=== PATIENT | female | born 1970 | race Caucasian/White ===

== ENCOUNTER 2024-09-08 05:44 | Emergency (ER) | payer OTHER, SELFPAY ==
--- NOTE | ~2024-09-08 | XR_ITS ---
XR chest 2V 09/08/2024 06:36 Indication: Chest palpitations Procedure: 2 view chest Comparison: 12/20/2023 Findings: Heart size normal. No focal air space disease, pulmonary edema, pleural effusion or suspect ed pneumothorax. Impression: 1: No acute cardiopulmonary disease. Reviewed, dictated and finalized at location A. Impression: 1: No acute cardiopulmonary disease.
--- OUTSIDE RECORDS SUMMARY | 2024-09-08 05:48 | XMS_ITS | Encounter Summary ---
Author Organization [facility] Address [address] [place] [address] Phone Care Team Providers Care Fire Alarm Operator Name Role Phone Marcela Mitchell MD Primary Care Provider [phone] Blake Browning MD Unavailable [phone] Burt Botello MD Unavailable [phone] Reason for Visit * Reason Comments Medication Refill Encounter Details Date Type Department Care Team (Late st Contact Info) Description 05/05/2020 Refill [facility] [address] [place] [address] Burt Botello MD [address] [place] [phone] Medication Refill Social History Tobacco Use Types Packs/Day Years Used Date Smoking Tobacco: Never Smokeless Tobacco: Never PHQ-2 Answer Date Recorded Total Score - Questions 1-9 1 04/21 Comments Unknown Sex and Gender Information Value Date Recorded Sex Assigned at Not on file Legal Sex Female 8:45 AM MICRO COMPUTER SPECIALIST Gender Identity Not on file Sexual Orientation Not on file COVID-19 Exposure Response Date Recorded In the last month, have you been in contact with someone who was confirmed or suspected to have Coronavirus / COVID-19? No / Unsure 05/08/2020 11:46 AM CDT documented as of this encounter Plan of Treatment Not on file documented as of this encounter Visit Diagnoses Not on filedocumented in this encounter Additional Health Concerns Assessment Noted Time PHQ-9 Depression Total Score: 1 04/26/19 20 2:42 PM MICRO COMPUTER SPECIALIST documented as of this encounter Care Teams Fire Alarm Operator Relationship Specialty [place] [address] [place] [address] PCP - General Internal Medicine 03/08/19 [place] [address] [place] [address] Colon & Rectal Surgery 03/08/19 Burt Botello MD [address] [place] [phone] Consulting Physician Oncology 04/21/20 documented as of this encounter
--- OUTSIDE RECORDS SUMMARY | 2024-09-08 05:48 | XMS_ITS | Encounter Summary ---
Author Organization [facility] Address [address] [place] [address] Care Team Providers Care Support Team Member Name Role Phone Marcela Mitchell MD Primary Care Provider [phone] None, Provider Primary Care Provider Karyna Isabel NP Primary Care Provider + [phone] Encounter Details Date Type Department Care Team (Late st Contact Info) Description 12/07/2019 [email or web address] Message Enc [facility] Family & Internal Medicine [address] [address] [facility] Results Social History Tobacco Use Types Packs/Day Years Used Date Smoking Tobacco: Never Smokeless Tobacco: Never Alcohol Use Standard Drinks/Week Comments Yes 0 (1 standard drink = 0.6 oz pur e alcohol) Very occasionally PHQ-2 Answer Date Recorded PHQ-2 Score 4 01/16/2019 Comments No Sex and Gender Information Value Date Recorded Sex Assigned at Female 05/03/2024 1:21 AM CDT Legal Sex Female 7:00 PM CDT Gender Identity Female 05/18/2021 6:23 AM CDT Sexual Orientation Straight 05/18/2021 6: 23 AM CDT COVID-19 Exposure Response Date Recorded In the last month, have you been in contact with someone who was confirmed or suspected to have Coronavirus / COVID-19? No / Unsure 12/07/2019 12:58 PM CDT documented as of this encounter Plan of Treatment Not on file documented as of this encounter Visit Diagnoses Not on filedocumented in this encounter Additional Health Concerns Infection Onset Date Last Indicated Resolved Time COVID-19 Rule Out 11/13/2020 11/13/2020 11/13/2020 3:12 PM CDT COVID-19 Rule Out 11/20/2020 11/20/2020 11/20/2020 2:55 PM CDT COVID-19 Rule Out 11/26/2020 11/26/2020 11/26/2020 3:00 PM CDT COVID-19 Rule Out 12/02/2020 12/02/2020 12/02/2020 3:04 PM CDT COVID-19 Rule Out 12/10/2020 12/10/2020 12/10/2020 2:59 PM CDT COVID-19 Rule Out 12/17/2020 12/17/2020 12/17/2020 3:13 PM CDT COVID-19 Rule Out 12/22/2020 12/22/2020 12/22/2020 4:02 PM CDT COVID-19 Rule Out 12/31/2020 12/31/2020 12/31/2020 3:08 PM OIL DISPATCHER COVID-19 Rule Out 01/07/2021 01/07/2021 01/07/2021 2:17 PM OIL DISPATCHER COVID-19 Rule Out 01/14/2021 01/14/2021 01/14/2021 3:00 PM OIL DISPATCHER COVID-19 Rule Out 01/21/2021 01/21/2021 01/21/2021 2:56 PM OIL DISPATCHER COVID-19 Rule Out 01/28/2021 01/28/2021 01/28/2021 2:51 PM OIL DISPATCHER COVID-19 Rule Out 02/04/2021 02/04/2021 02/04/2021 2:51 PM OIL DISPATCHER COVID-19 Rule Out 02/10/2021 02/10/2021 02/10/2021 3:04 PM OIL DISPATCHER COVID-19 Rule Out 02/18/2021 02/18/2021 02/18/2021 2:53 PM OIL DISPATCHER COVID-19 Rule Out 02/25/2021 02/25/2021 02/25/2021 5:03 PM OIL DISPATCHER COVID-19 Rule Out 03/04/2021 03/04/2021 03/04/2021 3:03 PM OIL DISPATCHER Assessment Noted Time PHQ-9 Depression Total Score: 15 019 11:32 AM CDT documented as of this encounter Care Teams Support Team Member Relationship Specialty Start Date End Date Marcela Mitchell MD PCP - General INTERNAL MEDICINE 07/20/18 01/17/23 None, Provider, PCP - General UNKNOWN PHYSICIAN SPECIALTY 01/18/23 [place] [address] [place] [address] PCP - General Nurse Practitioner Family 05/16/23 documented as of this encounter
--- OUTSIDE RECORDS SUMMARY | 2024-09-08 05:48 | XMS_ITS | Encounter Summary ---
Author Organization [facility] Address [address] [place] [address] Phone Care Team Providers Care Associate Software Application Engineer Name Role Phone Marcela Mitchell MD Primary Care Provider [phone] Blake Browning MD Unavailable [phone] Burt Botello MD Unavailable [phone] Reason for Visit * Reason Comments Medication Refill Encounter Details Date Type Department Care Team (Late st Contact Info) Description 01/18/2021 Refill [facility] [address] [place] [address] Burt Botello MD [address] [place] [phone] Medication Refill Social History Tobacco Use Types Packs/Day Years Used Date Smoking Tobacco: Never Smokeless Tobacco: Never PHQ-2 Answer Date Recorded Total Score - Questions 1-9 1 04/21 Comments No Sex and Gender Information Value Date Recorded Sex Assigned at Not on file Legal Sex Female 8:45 AM CONSUMER LOAN MANAGER Gender Identity Not on file Sexual Orientation Not on file documented as of this encounter Miscellaneous Notes * Telephone Encounter - Burt Botello MD - 01/19/2021 2:24 PM CONSUMER LOAN MANAGER Needs appt UMER LOAN MANAGER * Telephone Encounter - Marialuisa Jeff RMA - 01/19/2021 9:21 AM CST Pharmacy requested refill. Please refill if appropriate. Thanks! UMER LOAN MANAGER documented in this encounter Plan of Treatment Not on file documented as of this encounter Visit Diagnoses Not on filedocumented in this encounter Additional Health Concerns Assessment Noted Time PHQ-9 Depression Total Score: 1 05/09/19 21 12:00 PM CDT documented as of this encounter Care Teams Associate Software Application Engineer Relationship Specialty [place] [address] [place], [place] [id number] PCP - General Internal Medicine 03/08/19 [place] [address] [place] [address] Colon & Rectal Surgery 03/08/19 Burt Botello MD [address] [place] [address] Consulting Physician Oncology 04/21/20 documented as of this encounter
--- OUTSIDE RECORDS SUMMARY | 2024-09-08 05:48 | XMS_ITS | Encounter Summary ---
Author Organization [facility] Address [address] [place] [address] Phone Care Team Providers Care Packaging Engineer Name Role Phone Marcela Mitchell MD Primary Care Provider Blake Browning MD Unavailable [phone] Burt Botello MD Unavailable [phone] Reason for Visit * Reason Comments Medication Refill Encounter Details Date Type Department Care Team (Late st Contact Info) Description 02/03/2021 Refill [facility] [address] [address] Burt Botello MD [address] [place] [phone] Medication Refill Social History Tobacco Use Types Packs/Day Years Used Date Smoking Tobacco: Never Smokeless Tobacco: Never PHQ-2 Answer Date Recorded Total Score - Questions 1-9 1 04/21 Comments No Sex and Gender Information Value Date Recorded Sex Assigned at Not on file Legal Sex Female 8:45 AM CHIROPRACTIC ASSISTANT Gender Identity Not on file Sexual Orientation Not on file documented as of this encounter Plan of Treatment Not on file documented as of this encounter Visit Diagnoses Not on filedocumented in this encounter Additional Health Concerns Assessment Noted Time PHQ-9 Depression Total Score: 1 05/09/19 21 12:00 PM CDT documented as of this encounter Care Teams Packaging Engineer Relationship Specialty [place] [address] [place] [address] PCP - General Internal Medicine 03/08/19 [place] [address] [place] [address] Colon & Rectal Surgery 03/08/19 Burt Botello MD [address] [place] [phone] Consulting Physician Oncology 04/21/20 documented as of this encounter
--- OUTSIDE RECORDS SUMMARY | 2024-09-08 05:48 | XMS_ITS | Clinical Summary ---
Author Organization [facility] Address [address] [place] [address] Care Team Providers Care Property Field Adjuster Name Role Phone Karyna Gallardo NP Primary Care Provider Allergies No known active allergies Medications multi vitamin/minerals tablet Take 1 tablet by mouth daily. Active Cholecalciferol (VITAMIN D3) Powder Take by mouth. Active Vitamin E Powder Take by mouth. 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 Abnormal mammogram of right breast 12/29/2018 Family history of breast cancer in mother 2018 Irregular periods 08/04/2015 Low grade squamous intraepit helial lesion (LGSIL) on cervical Pap smear 07/31/2015 Hematuria 07/17/2015 Hyperlipidemia 10/04/2014 Encounters Date Type Department Care Team Description 06/28/2024 1:56 PM CDT - 06/28/2024 11:59 PM CDT Hospital Encounter [facility] Mammography [address] [place] [address] Reid Molina, WELT BUTTER HAND Discharge Disposition: Home or Self Care (Routine Discharge) 06/28/2024 Travel from Last 3 Months Immunizations Immunization Administration Dates Next Due Fluzone Adult - >Age 3 (Prefilled Syringe) 12/05 Td (Tenivac) preservative free 1972 Tdap (Generic) 07/24/2015 Family History Medical History Relation Comments CHF Father COPD Father Emphysema Father Hypertension Father Breast Cancer Maternal Grandmother UNSURE OF A GE Breast Cancer Mother LATE 50'S Cancer Mother Breast Cancer Sister 1 Cancer Sister 2 Relation Status Comments Father Maternal Grandmother Mother Sister 1 Alive Sister 2 Social History Tobacco Use Types Packs/Day Years Used Date Smoking Tobacco: Never Smokeless Tobacco: Never Tobacco Cessation:Counseling Given: Not Answered Alcohol Use Standard Drinks/Week Comments Not Currently 0 (1 standard drink = 0.6 oz pur e alcohol) Very occasionally PHQ-2 Answer Date Recorded Patient Health Questionnaire-2 Score 1 05/22/2024 Comments No Sex and Gender Information Value Date Recorded Sex Assigned at Female 05/03/2024 1:21 AM CDT Legal Sex Female 7:00 PM CDT Gender Identity Female 05/18/2021 6:23 AM CDT Sexual Orientation Straight 05/18/2021 6: 23 AM CDT Last Filed Vital Signs Vital Sign Reading Time Taken Comments Blood Pressure 136/87 05/22/2024 2:29 PM CDT Pulse 83 05/22/2024 2:29 PM CDT Temperature 36.8 C (98.2 F) 05/22/2024 2:29 PM CDT Respiratory Rate 18 05/22/2024 2:29 PM CDT Oxygen Saturation 100% 05/22/2024 2:29 PM CDT Inhaled Oxygen Concentration - - Weight 72.6 kg (160 lb) 05/22/2024 2:29 PM CDT Height 167.6 cm (5' 6) 05/22/2024 2:29 PM CDT Body Mass Index 25.82 05/22/2024 2:29 PM CDT Plan of Treatment Health Maintenance Due Date Last Done Comments Colorectal Cancer Screening Colonoscopy (10 Years) 1972 Annual Physical 12/19/1975 Hepatitis C 1990 Hepatitis B Vaccines (1 of 3 - 19+ 3-dose series) 12/19/1991 Pneumococcal Vaccine: 50+ Years (1 of 1 - PCV) 2022 Zoster Vaccines (1 of 2) 2022 COVID-19 Vaccine ( - 2023- season) 2023 Cervical Cancer Screening Pap Smear (Age 30 to 64) Every 3 Years 08/21/2024 08/21/2021, 06/26/2021, 07/24/2015 DTaP, Tdap and Td Vaccines (2 - Td or Tdap) 07/23/2025 07/24/2015, 1970 Mammogram Screening 06/28/2026 06/28/2024, 06/13/2023, 01/12/2022, Additional history exists Cervical Cancer Screening Pap with HPV Testing (Age 30 to 64) Every 5 Years 08/21/2026 08/21/2021, 06/26/2021, 07/24/2015 Cervical Cancer Screening with HPV 08/21/2026 PHQ-2 (Physician [place]) Completed 05/22/2024 Meningococcal B Vaccine Aged Out No l onger eligible based on patient's age to complete this topic Meningococcal Vaccine Aged Out No radha uriel eligible based on patient's age to complete this topic RSV Immunizations Under 20 Months Aged Out No longer eligible based on patient's age to complete this topic Procedures Procedure Name Priority Date/Time Associated Diagnosis Comments MG SCREENING W MARIBEL KANDI DIGI Routine 06/28/2024 2:36 PM CDT Encounter for screening mammogram for malignant neoplasm of breast HPV MRNA E6/E7 Routine 08/21/2021 2:55 PM CDT CYTOPATH CERV/VAG THIN LAYER Routine 08/21/2021 12:00 AM CDT from Last 3 Months or Most Recently Relevant to Health Maintenance Results * MG SCREENING W MARIBEL KANDI DIGI (06/28/2024 2:36 PM CDT) Anatomical Region Laterality Modality Breast Bilateral Mammography 06/28/2024 4:59 PM CDT Impressions 06/28/2024 5:03 PM CDT ===== IMPRESSION: ===== 1. Stable mammographic appearance with no new findings to suggest malignancy in either breast. Assessment: ACR BI-RADS 2 - BENIGN FINDING(S) Recommendation: 1:Routine Screening Bilateral Comments: Ordered By: REID Benoitally Signed By: Charlotte Cassidy on 06/28/2024 5:03 PM Interpreted By: Charlotte Cassidy, 06/28/2024 4:59 PM Narrative 06/28/2024 5:03 PM CDT [facility] [address] [place] [address] EXAMINATION: Digital bilateral screening mammogram with 3-D tomosynthesis EXAM DATE/TIME: 06/28/2024 2:03 PM REASON FOR EXAM: SCREENING MAMMO Right breast carcinoma in 2019 with lumpectomy. Breast carcinoma in mother in her late 50s and sister at age 62. COMPARISON: 01/12/2022. 06/13/2023. Technique: Digital screening mammography of both breasts was performed in addition to 3-D Tomosynthesis technique. This study was read with the assistance of a computer-aided detection system. Tissue density: The breasts are heterogeneously dense, which may obscure small masses. Findings: Stable postoperative change in right breast. There is no new focal asymmetry, dominant mass lesion, area of skin thickening, or cluster of suspicious appearing calcifications in either breast to suggest malignancy. us Reid Molina [employer] MAMMO Final Result * HPV MRNA E6/E7 (08/21/2021 2:55 PM CDT) HPV MRNA E6/E7 Not Detected NOT DETECTED 08/27/2021 6:16 AM CDT [employer]OR [facility]UARE[employer] Comment: Methodology: [employer] Judicial Law Clerk Mediated Amplification This assay detects E6/E7 viral messenger RNA (mRNA) from 14 high-risk HPV types (16,18,31,33,35,39,45,51, 52,56,58,59,66,68). For additional information please refer to: http://education.Federated Sample.[employer]/faq/CSF672p3 (This link is being provided for informational/ educational purposes only.) The analytical performance characteristics of this assay have been determined by [employer] [place], [place]. The modifications have not been cleared or approved by the FDA. This assay has been validated pursuant to the CLIA regulations and is used for clinical purposes. Test Performed by [facility] [facility], [address] [place], [place] Foreign Aj M.D., Ph.D., Director of Laboratories , CLIA [id number] 08/21/2021 2:55 PM CDT Reid Molina NP PATHOLOGY/CYTOLOGY ORDERABLES Final Result [facility] [address] [place] [address], * Cytopath Cerv/Vag Thin Layer (08/21/2021 12:00 AM CDT) COPATH REPORT [place] [address] [phone] Department of Pathology Pathology Report Gynecological Cytology Report Patient Name: YASMEEN ANDREW : 1970 (Age: 50) Location: [facility] Gender: F Collected Date: 08/21/2021 [facility] Rec #: [id number] Date Received: 08/24/2021 Date Reported: 08/27/2021 Provider: REID MALAGON Other Case Numbers [id number] Final Cytologic Diagnosis Satisfactory for evaluation. Endocervical component present. Negative for Intraepithelial Lesion or Malignancy. Cellular changes associated with Malia. High-risk HPV mRNA E6/E7 by [employer] assay (performed at [employer]) is reported as NOT DETECTED (see separate report for details). Electronically Signed Out By Van Jj Source of Specimen(s) Cervical/Endocervi francois - Thin Prep Clinical History Screening, last Pap 05/19/18 wnl. Z12.4 Date of Last Menstrual Period: 06/18/21 Billing Fee Code(s): A: 119[address] [facility] (B) [facility] 08/21/2021 08/24/2021 11: 16 AM CDT Comment:Cervical/Endocervica l - Thin Prep Reid Molina NP PATHOLOGY/CYTOLOGY ORDERABLES Final Result [facility] [address] [place] [address], from Last 3 Months or Most Recently Relevant to Health Maintenance Insurance [facility] Care Teams Property Field Adjuster Relationship Specialty [place] [address] [place] [address] PCP - General Nurse Practitioner Family 05/16/23
--- OUTSIDE RECORDS SUMMARY | 2024-09-08 05:48 | XMS_ITS | Clinical Summary ---
Author Organization [facility] Address [address], [facility] [address] [place] [address] Phone Care Team Providers Care Publication Manager Name Role Phone Marcela Mitchell MD Primary Care Provider [phone] Blake Browning MD Unavailable [phone] Burt Botello MD Unavailable [phone] Allergies No known active allergies Medications cyanocobalamin 1000 MCG Tablet Take 1,000 mcg by mouth. Active Multiple Vitamins-Minera ls (MULTI VITAMIN/MINERAL S) Tablet Take 1 Tab by mouth. Active tamoxifen citrate 20 MG Tablet Take 1 Tablet by mouth daily 90 Tablet 2 2 Active Additional Information Patient not taking.Reported on 02/04/2022 VITAMIN E PO Take by mouth. Ac tive VITAMIN D PO Take by mouth. 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 Immunizations Immunization Administration Dates Next Due Influenza Vaccine 12/05/2018 TDAP Vaccine 07/24/2015 Family History Medical History Relation Name Comments Congestive Heart Failure Father Cancer Mother Relation Name Status Comments Father COPD, Emphysema Mother breast cancer Social History Tobacco Use Types Packs/Day Years Used Date Smoking Tobacco: Never Smokeless Tobacco: Never Tobacco Cessation:Counseling Given: No PHQ-2 Answer Date Recorded Total Score - Questions 1-9 0 0 03/2021 Comments No Sex and Gender Information Value Date Recorded Sex Assigned at Not on file Legal Sex Female 8:45 AM WASHING MACHINE MECHANIC Gender Identity Not on file Sexual Orientation Not on file Last Filed Vital Signs Vital Sign Reading Time Taken Comments Blood Pressure 110/68 02/04/2022 1:40 PM WASHING MACHINE MECHANIC Pulse 98 02/04/2022 1:40 PM WASHING MACHINE MECHANIC Temperature 36.6 C (97.8 F) 02/04/2022 1:40 PM WASHING MACHINE MECHANIC Respiratory Rate 18 07/23/2021 1:00 PM CDT Oxygen Saturation 98% 02/04/2022 1:40 PM WASHING MACHINE MECHANIC Inhaled Oxygen Concentration - - Weight 68.9 kg (152 lb) 02/04/2022 1:40 PM WASHING MACHINE MECHANIC Height 167.6 cm (5' 6) 02/04/2022 1:40 PM WASHING MACHINE MECHANIC Body Mass Index 24.53 02/04/2022 1:40 PM WASHING MACHINE MECHANIC Plan of Treatment Health Maintenance Due Date Last Done Comments Hepatitis C Virus (HCV) Screening 1972 SARS-COV-2 Immunization (#1) 1977 Hepatitis B Immunization (1 of 3 - 19+ 3-dose series) 12/19/1991 Zoster Immunization (1 of 2) 12/19/1991 HPV/Cotest 2002 Cologuard 2017 Colonoscopy 2017 Colorectal Cancer Screening 2017 Immunochemical Fecal Occult Blood 2017 Pneumococcal Immunization (50+ years) (1 of 1 - PCV) 2022 Mammogram 01/12/2023 01/12/2022, 01/21, 01/09/2019, Additional history exists Cervical Cancer Screening (CCS) 06/26/2024 Pap Smear 06/26/2024 06/26/2021 Influenza Immunization (#1) 2024 12/05/2018 Td Immunization Every 10 Years (Adults With 1 Tdap) 07/23/2025 07/24/2015 Respiratory Syncytial Virus (RSV) Immunization (Adult) (1 - 1-dose 75+ series) 12/19/2047 DTaP/Tdap/Td Immunization Discontinued 07/24/2015 Human Papillomavirus (HPV) Immunization Aged Out No longer eligible based on patient's age to complete this topic Meningococcal Immunization (ACWY) Aged Out No longer eligible based on patient's age to complete this topic Rotavirus Immunization Aged Out No lo nger eligible based on patient's age to complete this topic Procedures Procedure Name Priority Date/Time Associated Diagnosis Comments PATHOLOGY CYTOLOGY METAL OR WOOD BLOCKER Routine 06/26/2021 from Last 3 Months or Most Recently Relevant to Health Maintenance Results * PATHOLOGY CYTOLOGY METAL OR WOOD BLOCKER (06/26/2021) Other us Not On File Provider PATHOLOGY/CYTOLOGY ORDERABL ES Final Result from Last 3 Months or Most Recently Relevant to Health Maintenance Insurance [facility] Care Teams Publication Manager Relationship Specialty [place] [address] [place] [address] PCP - General Internal Medicine 03/08/19 [place] [address] [place] [address] Colon & Rectal Surgery 03/08/19 Burt Botello MD [address] [place] [address] Consulting Physician Oncology 04/21/20
--- OUTSIDE RECORDS SUMMARY | 2024-09-08 05:48 | XMS_ITS | Encounter Summary ---
Author Organization [facility] Address [address] [place] [address] Care Team Providers Care Hadoop Engineer Name Role Phone Karyna Gallardo NP Primary Care Provider [phone] Encounter Details Date Type Department Care Team (Late st Contact Info) Description 05/16/2023 Pansieve Message Enc [facility] Family & Internal Medicine [address] [address] for; to (do) Centers, [facility] Provider reset appt Social History Tobacco Use Types Packs/Day Years [...] Orientation Straight 05/18/2021 6: 23 AM CDT documented as of this encounter Plan of Treatment Not on file documented as of this encounter Visit Diagnoses Not on filedocumented in this encounter Additional Health Concerns Assessment Noted Time PHQ-9 Depression Total Score: 15 019 11:32 AM CDT documented as of this encounter Care Teams Hadoop Engineer Relationship Specialty Start [place] [address] [facility] [address] [facility] [place] [address] PCP - General Nurse Practitioner Family 05/16/23 documented as of this encounter
--- OUTSIDE RECORDS SUMMARY | 2024-09-08 05:48 | XMS_ITS | Encounter Summary ---
Author Organization [facility] Address [address] [place] [id number] Care Team Providers Care Zipper Machine Operator Name Role Phone Marcela Mitchell MD Primary Care Provider + [phone] None, Provider Primary Care Provider Karyna Isabel NP Primary Care Provider + [phone] Encounter Details Date Type Department Care Team (Late st Contact Info) Description 05/21/2019 [facility] Patient Accounts [address] [place] [address] [facility] Provider account balance Social History Tobacco Use Types Packs/Day Years [...] Rule Out 12/31/2020 12/31/2020 12/31/2020 3:08 PM FAMILY SERVICE WORKER COVID-19 Rule Out 01/07/2021 01/07/2021 01/07/2021 2:17 PM FAMILY SERVICE WORKER COVID-19 Rule Out 01/14/2021 01/14/2021 01/14/2021 3:00 PM FAMILY SERVICE WORKER COVID-19 Rule Out 01/21/2021 01/21/2021 01/21/2021 2:56 PM FAMILY SERVICE WORKER COVID-19 Rule Out 01/28/2021 01/28/2021 01/28/2021 2:51 PM FAMILY SERVICE WORKER COVID-19 Rule Out 02/04/2021 02/04/2021 02/04/2021 2:51 PM FAMILY SERVICE WORKER COVID-19 Rule Out 02/10/2021 02/10/2021 02/10/2021 3:04 PM FAMILY SERVICE WORKER COVID-19 Rule Out 02/18/2021 02/18/2021 02/18/2021 2:53 PM FAMILY SERVICE WORKER COVID-19 Rule Out 02/25/2021 02/25/2021 02/25/2021 5:03 PM FAMILY SERVICE WORKER COVID-19 Rule Out 03/04/2021 03/04/2021 03/04/2021 3:03 PM FAMILY SERVICE WORKER Assessment Noted Time PHQ-9 Depression Total Score: 15 019 11:32 AM CDT documented as of this encounter Care Teams Zipper Machine Operator Relationship Specialty Start Date End Date Marcela Mitchell MD PCP - General INTERNAL MEDICINE 07/20/18 01/17/23 None, Provider, PCP - General UNKNOWN PHYSICIAN SPECIALTY 01/18/23 [place] [id number] [address] PCP - General Nurse Practitioner Family 05/16/23 documented as of this encounter
--- OUTSIDE RECORDS SUMMARY | 2024-09-08 05:48 | XMS_ITS | Data Portability ---
Author Organization [facility] Address [address] [place] [address] Assessment No assessment recorded. Plan of Treatment Reminders Order Date Submit Date Provider Last Modified By Organization Details Last Modified Time Details Appointments None recorded. Lab urinalysi s, dipstick 2015 016 garry In-Office Order, Internal Use Only DO Not Attach Compendium DO Not Attach Compendium, Do Not Delete/merge, [id number] 6 18:25:43 test, urine 2015 016 garry In-Office Order, Internal Use Only DO Not Attach Compendium DO Not Attach Compendium, Do Not Delete/merge, [id number] 6 18:25:43 pap, IG + HPV, cervical 2015 016 JERICA العراقي, [address], [address], [place], [address], 6 10:37:25 HSV (1+2) DNA, qual, PCR, unspecifi ed specimen 2015 016 JERICA العراقي, [address], [address], [place], [address], 6 14:14:59 culture, vaginal/r ectal, streptoco ccus group B 2015 016 JERICA العراقي, [address], [address], [place], [address], 6 14:14:59 bacterial vaginosis + vaginitis panel, vaginal 2015 [facility], [address], [address], [place], [address], 6 14:14:58 RPR (rapid plasma reagin), serum 2015 [facility], [address] [place], [place] [address]h[address], [address], [place], [address], 6 08:26:45 hsv-2 (herpes simplex virus type 2) igg Ab, serum 2015 [facility], [address] [place], [place] [address]h[address]al [address], [address], [place], [address], 6 08:26:46 hepatitis panel (A+B+C), acute, serum 2015 [facility], [address] [place], [place] [address], [address], [place], [address], 6 08:26:44 hepatitis B surface Ab, qualitati ve, serum 2015 [facility], [address] [place], [place] [address]h[address]al [address], [address], [place], [address], 6 08:26:44 HIV 1+2 AB + HIV 1 p24 Ag, qualitati ve immunoass ay, serum 2015 [facility], [address], [address], [address], 08:26:45 Referral None recorded. Procedures None recorded. Surgeries None recorded. Imaging MAMMO, screening , bilateral 10/11/ 2016 10/11/2 016 bmoser Not available 6 10:07:48 Medication Orders Vitamin tablet 2015 016 garry [id number] [facility], [address] , [place], [address], 6 18:25:43 Patient TargetsNo targets recorded. Patient Instructions Encounter Date Encounter Id Patient Instructions Last Modified By Organization Details Last Modified Time 12/02/2015 [id number] mammogram: about this test garry Not available 12/02/2015 18:25:43 Reason for Referral None Reported. Results Created Date Observation Date Name Description Value Unit Range Abnormal Flag Note LastModifiedBy Organization Detail LastModifiedTime 12/02/19 16 12/02/2015 pregn leidy test, urine HCG negati ve Not Available In-Office Order Internal Use Only DO Not Attach Compendium DO Not Attach Compendium, Do Not Delete/merge, [id number] 12/02/2015 15:06:35 12/02/19 16 12/02/2015 urina lysis , dipst ick Leukocytes Negati ve Not Available In-Office Order Internal Use Only DO Not Attach Compendium DO Not Attach Compendium, Do Not Delete/merge, [id number] 12/02/2015 15:06:16 12/02/19 16 12/02/2015 urina lysis , dipst ick Nitrite negati ve Not Available In-Office Order Internal Use Only DO Not Attach Compendium DO Not Attach Compendium, Do Not Delete/merge, [id number] 12/02/2015 15:06:16 12/02/19 16 12/02/2015 urina lysis , dipst ick Urobilinogen 1 Not Available In-Of fice Order Internal Use Only DO Not Attach Compendium DO Not Attach Compendium, Do Not Delete/merge, [id number] 12/02/2015 15:06:16 12/02/19 16 12/02/2015 urina lysis , dipst ick Protein Negati ve Not Available In-Office Order Internal Use Only DO Not Attach Compendium DO Not Attach Compendium, Do Not Delete/merge, [id number] 12/02/2015 15:06:16 12/02/19 16 12/02/2015 urina lysis , dipst ick pH 6.0 Not Available In-Office Order Internal Use Only DO Not Attach Compendium DO Not Attach Compendium, Do Not Delete/merge, [id number] 12/02/2015 15:06:16 12/02/19 16 12/02/2015 urina lysis , dipst ick Blood Non-He molyze d: Trace Not Available In-Office Order Internal Use Only DO Not Attach Compendium DO Not Attach Compendium, Do Not Delete/merge, [id number] 12/02/2015 15:06:16 12/02/19 16 12/02/2015 urina lysis , dipst ick Specific [place] 1.025 Not Available In-Off ice Order Internal Use Only DO Not Attach Compendium DO Not Attach Compendium, Do Not Delete/merge, [id number] 12/02/2015 15:06:16 12/02/19 16 12/02/2015 urina lysis , dipst ick Ketone Negati ve Not Available In-Office Order Internal Use Only DO Not Attach Compendium DO Not Attach Compendium, Do Not Delete/merge, [id number] 12/02/2015 15:06:16 12/02/19 16 12/02/2015 urina lysis , dipst ick Bilirubin Negati ve Not Available In-Office Order Internal Use Only DO Not Attach Compendium DO Not Attach Compendium, Do Not Delete/merge, [id number] 12/02/2015 15:06:16 12/02/19 16 12/02/2015 urina lysis , dipst ick Glucose Negati ve Not Available In-Office Order Internal Use Only DO Not Attach Compendium DO Not Attach Compendium, Do Not Delete/merge, [id number] 12/02/2015 15:06:16 12/02/19 16 12/03/2015 hepat itis panel (A+B+ C), acute , serum hep A Ab, IgM NEGATI VE negati ve Not Available [facility] ([facility]) [address] [place], [address], 12/03/2015 08:26:44 12/02/19 16 12/03/2015 hepat itis panel (A+B+ C), acute , serum HBsAg screen NEGATI VE negati ve Not Available [facility] ([facility]) [address] [place], [address], 12/03/2015 08:26:44 12/02/19 16 12/03/2015 hepat itis panel (A+B+ C), acute , serum hep B core Ab, IgM NEGATI VE negati ve Not Available [facility] ([facility]) [address] [facility], [place], [address], 12/03/2015 08:26:44 12/02/19 16 12/03/2015 hepat itis panel (A+B+ C), acute , serum hep C virus Ab <0.1 S/co_ ratio 0.0-0. 9 NEGAT KATIE: < 0.8 INDET ERMIN ATE: 0.8 - 0.9 POSIT KATIE: > 0.9 THE CDC RECOM MENDS THAT A POSIT KATIE HCV ANTIB ANTONIO RESUL T BE FOLLO WED UP WITH A HCV NUCLE IC ACID AMPLI FICAT ION TEST (5507 13). Not Available [facility] ([facility]) [address] [facility], [place], [address], 12/03/2015 08:26:44 12/02/19 16 12/03/2015 hepat itis B surfa ce Ab, quali tativ e, serum hep B surface Ab, qual NON REACTI VE NON REACT KATIE: INCON SISTE NT WITH IMMUN ITY, LESS THAN 10 MIU/M L REACT KATIE: CONSI STENT WITH IMMUN ITY, GREAT ER THAN 9.9 MIU/M L Not Available [facility] ([facility]) [address] [facility], [place], [address], 12/03/2015 08:26:44 12/02/19 16 12/03/2015 RPR (rapi d plasm a reagi n), serum RPR NON REACTI VE non reacti ve Not Available [facility] ([facility]) [address] [facility], [place], [address], 12/03/2015 08:26:45 12/02/19 16 12/03/2015 HIV 1+2 AB + HIV 1 p24 Ag, quali tativ e immun oassa y, serum HIV screen 4TH generation wrfx NON REACTI VE non reacti ve Not Available [facility] ([facility]) [address] [facility], [place], [address], 12/03/2015 08:26:45 12/02/19 16 12/03/2015 hsv-2 (herp es simpl ex virus type 2) igg Ab, serum hsv 2 IgG, type spec 6.33 index 0.00-0 .90 above high normal NEGAT KATIE <0.91 EQUIV OCAL 0.91 - 1.09 POSIT KATIE >1.09 NOTE: NEGAT KATIE INDIC ATES NO ANTIB ODIES DETEC DEVON TO HSV-2 . EQUIV OCAL MAY SUGGE ST EARLY INFEC TION. IF CLINI [place] APPRO PRIAT E, RETES T AT LATER DATE. POSIT KATIE INDIC ATES ANTIB ODIES DETEC DEVON TO HSV-2 . Not Available [facility] ([facility]) [address] [facility], [place], [address], 12/03/2015 08:26:46 12/02/19 16 12/04/2015 pap, IG + HPV, cervi francosi diagnosis: YOANDY T NEGAT KATIE FOR INTRA EPITH ELIAL MARTÍN N AND GEORGE PICKERING . Not Available [facility] ([facility]) [address] [facility], [place], [address], 12/05/2015 10:37:25 12/02/19 16 12/04/2015 pap, IG + HPV, cervi francois specimen adequacy: COMMBOB T SATIS FACTO RY FOR EVALU ATION . ENDOC ERVIC AL AND/O R SQUAM OUS METAP LASTI C CELLS (ENDO CERVI FRANCOIS COMPO NENT) ARE PRESE NT. Not Available [facility] ([facility]) [address] [facility], [place], [address], 12/05/2015 10:37:25 12/02/19 16 12/04/2015 pap, IG + HPV, cervi francois performed by: YOANDY T MICAH ROQUE CYTOT ECHNO LOGIS T Not Available [facility] ([facility]) [address] [place], [address], 12/05/2015 10:37:25 12/02/19 16 12/04/2015 pap, IG + HPV, cervi francois . . Not Available [facility] ([facility]) [address] [facility], [place], [address], 12/05/2015 10:37:25 12/02/19 16 12/04/2015 pap, IG + HPV, cervi francois note: COMMEN T THE PAP SMEAR IS A SCREE ANGELICA TEST DESIG CHIQUITA TO AID IN THE DETEC TION OF ERICA LIGNA NT AND MALIG NANT CONDI TIONS OF THE UTERI NE CERVI X. IT IS NOT A DIAGN OSTIC PROCE DURE AND SHOUL D NOT BE USED THE SOLE MEANS OF DETEC TING CERVI FRANCOIS CANCE R. BOTH FALSE -POSI TIVE AND FALSE -NEGA TIVE REPOR TS DO OCCUR . Not Available [facility] ([facility]) [address] [place], [address], 12/05/2015 10:37:25 12/02/19 16 12/04/2015 pap, IG + HPV, cervi francois test methodology: COMMEN T THIS LIQUI D BASED THINP REP(R ) PAP TEST WAS SCREE CHIQUITA WITH THE USE OF AN IMAGE GUIDE Jordi Guevara. Not Available [facility] ([facility]) [address] [place], [address], 12/05/2015 10:37:25 12/02/19 16 12/05/2015 pap, IG + HPV, cervi francois HPV aptima NEGATI VE negati ve THIS TEST DETEC TS FOURT EEN HIGH- RISK HPV TYPES (16/1 8/31/ 33/35 /39/4 5/ 51/52 /56/5 8/59/ 66/68 ) WITHO UT DIFFE RENTI ATION . Not Available [facility] ([facility]) [address] [place], [address], 12/05/2015 10:37:25 12/02/19 16 12/04/2015 bacte rial vagin osis + vagin itis panel , vagin al atopobium vaginae LOW - 0 score Not Available [facility] ([facility]) [address] [place], [address], 12/05/2015 14:14:58 12/02/19 16 12/04/2015 bacte rial vagin osis + vagin itis panel , vagin al bvab 2 LOW - 0 score Not Available [facility] ([facility]) [address] [place], [address], 12/05/2015 14:14:58 12/02/19 16 12/04/2015 bacte rial vagin osis + vagin itis panel , vagin al megasphaera 1 LOW - 0 score CALCU LATE TOTAL SCORE BY MAINE Miller THE 3 INDIV IDUAL BACTE RIAL VAGIN OSIS (BV) MARKE R SCORE S TOGET HER. TOTAL SCORE IS INTER PRETE D FOLLO WS: TOTAL SCORE 0-1: INDIC ATES THE ABSEN CE OF BV. TOTAL SCORE 2: INDET ERMIN ATE FOR BV. ADDIT IONAL CLINI FRANCOIS DATA SHOUL D BE EVALU ATED TO ESTAB MEGHNA A DIAGN OSIS. TOTAL SCORE 3-6: INDIC ATES THE PRESE NCE OF BV. THIS TEST WAS DEVEL OPED AND ITS PERFO RMANC E HARINDER CTERI STICS DETER MINED BY [facility]. IT HAS NOT BEEN CLEAR ED OR APPRO MARTHA BY THE FOOD AND DRUG ADMIN ISTRA TION. THE FDA HAS DETER MINED THAT SUCH CLEAR ANCE OR APPRO LORRIE IS NOT NECES BENTLEY. Not Available [facility] ([facility]) [address] [facility], [place], [address], 12/05/2015 14:14:58 12/02/19 16 12/04/2015 bacte rial vagin osis + vagin itis panel , vagin al mila albicans, ADELE NEGATI VE negati ve Not Available [facility] ([facility]) [address] [place], [address], 12/05/2015 14:14:58 12/02/19 16 12/04/2015 bacte rial vagin osis + vagin itis panel , vagin al mila glabrata, ADELE POSITI VE negati ve abnormal THIS TEST WAS DEVEL OPED AND ITS PERFO RMANC E HARINDER CTERI STICS DETER MINED BY [facility]. IT HAS NOT BEEN CLEAR ED OR APPRO MARTHA BY THE FOOD AND DRUG ADMIN ISTRA TION. THE FDA HAS DETER MINED THAT SUCH CLEAR ANCE OR APPRO LORRIE IS NOT NECES BENTLEY. PUBLI SHED DATA DEMON STRAT E THAT UP TO 65% OF SHANTEL DA GLABR SU IDENT IFIED IN CASES OF VAGIN AL SHANTEL DIASI S HAVE DECRE ASED SUSCE PTIBI LITY TO FLUCO NAZOL E. Not Available [facility] ([facility]) [address] [facility], [place], [address], 12/05/2015 14:14:58 12/02/19 16 12/04/2015 bacte rial vagin osis + vagin itis panel , vagin al trich vag by ADELE NEGATI VE negati ve Not Available [facility] ([facility]) [address] [place], [address], 12/05/2015 14:14:58 12/02/19 16 12/04/2015 bacte rial vagin osis + vagin itis panel , vagin al chlamydia trachomatis, ADELE NEGATI VE negati ve Not Available [facility] ([facility]) [address] [place], [address], 12/05/2015 14:14:58 12/02/19 16 12/04/2015 bacte rial vagin osis + vagin itis panel , vagin al neisseria gonorrhoeae, ADELE NEGATI VE negati ve Not Available [facility] ([facility]) [address] [place], [address], 12/05/2015 14:14:58 12/02/19 16 12/04/2015 HSV (1+2) DNA, qual, PCR, unspe cifie d speci men hsv 1 ADELE NEGATI VE negati ve Not Available [facility] ([facility]) [address] [facility], [place], [address], 12/05/2015 14:14:59 12/02/19 16 12/05/2015 HSV (1+2) DNA, qual, PCR, unspe cifie d speci men hsv 2 ADELE POSITI VE negati ve abnormal Not Available [facility] ([facility]) [address] [facility], [place], [address], 12/05/2015 14:14:59 12/02/19 16 12/04/2015 cultu re, vagin al/re ctal, strep tococ cus group B strep gp B ADELE NEGATI VE negati ve CENTE RS FOR DISEA SE CONTR OL AND PREVE NTION (CDC) AND JUAN JERI CAN CONGR ESS OF OBSTE TRICI ANS AND GYNEC OLOGI STS (ACOG ) GUIDE LINES FOR PREVE NTION OF PERIN ATAL GROUP B STREP TOCOC FRANCOIS (GBS) DISEA SE SPECI FY CO-CO LLECT ION OF A VAGIN AL AND RECTA L SWAB SPECI MEN TO MAXIM IZE SENSI TIVIT Y OF GBS DETEC TION. PER THE CDC AND ACOG, SWABB ING BOTH THE LOWER VAGIN A AND RECTU M SUBST ANTIA LLY INCRE ASES THE YIELD OF DETEC TION BLANCA RED WITH SAMPL ING THE VAGIN A ALONE . PENIC ILLIN G, AMPIC ILLIN , OR CEFAZ SUSANNAH ARE INDIC ATED FOR INTRA PARTU M PROPH YLAXI S OF PERIN ATAL GBS COLON IZATI ON. REFLE X SUSCE PTIBI LITY TESTI NG SHOUL D BE PERFO RMED PRIOR TO USE OF CLIND AMYCI N ONLY ON GBS ISOLA JORDEN FROM PENIC ILLIN -SUMMER RGIC WOMEN WHO ARE CONSI DERED A HIGH RISK FOR ANAPH YLAXI S. TREAT MENT WITH VANCO MYCIN WITHO UT ADDIT IONAL TESTI NG IS WARRA NTED IF RESIS TANCE TO CLIND AMYCI N IS NOTED . Not Available [facility] ([facility]) [address] [facility], [place], [address], 12/05/2015 14:14:59 Result Notes None recorded. Problems Name Problem SNOMED Code Status Onset Date Resolution Date Notes Provider Name and Address Organization Details Recorded Time Genital herpes simplex 81610884 Active Burt howell [facility] 6 15:39:07 Candidiasis of vagina 50874730 Active Burt howell [facility] 6 15:39:07 Problem Notes None recorded. Procedures Surgical History Date Name Laterality Status Provider Name and Address Organization Details Recorded Time Date of Last Pap Smear completed Melani Jolley MA [facility] 12/02/2015 14:52:32 Back Surgery completed Melani Jolley MA [facility] 12/02/2015 14:46:24 Colposcopy completed Melani Jolley [facility] 12/02/2015 14:46:24 Imaging Results None recorded. Procedure Notes None recorded. Medical Equipment None Reported. Allergies No known drug allergies Medications Name Sig Start Date Stop Date Status Note LastModified by Organization Details LastModified Time fluconazole 150 mg tablet Take 1 tablet by oral route. 2015 active Not Available Not Available Not Avai lable Terazol 3 0.8 % vaginal cream Insert 1 applicatorf ul every day by vaginal route for 3 days. 2015 active Not Available Not Available Not Avai lable acyclovir 800 mg tablet Take 1 tablet every day by oral route. 2015 active Not Available Not Available Not Avai lable Vitamin tablet Take 1 tablet every day by oral route as directed for 90 days. 2015 active Not Available Not Available Not Avai lable Lutera (28) 0.1 mg-20 mcg tablet TAKE 1 TABLET BY MOUTH DAILY 2016 active Not Available Not Available Not Avai lable L norgest/E estradiol-E estrad 0.1 mg-20 mcg (84)/10 mcg (7) tabs,3mos 1QD 2016 active Not Available Not Available Not Avai lable Vitals Date Recorded Body weight Body mass index (BMI) Body height Systolic And Diastolic Provider Name and Address Organization Details Last Updated DateTime 12/02/2015 87373.708 91 g 23.1 kg/m2 167.64 cm 116/70 mm[Hg] Melani Jolley [place] [facility] 12/02/2015 15:08:44 Social History Question Answer Notes LastModified by Organizat ion Details LastModified Time Tobacco Smoking Status Never Smoker Melani Jolley [place] null, [facility] 12/02/2015 14:48:35 Do You Have An Advance Directive? No Information not available 12/02/2015 Is Blood Transfusion Acceptable In An Emergency? Yes Information not available 12/02/2015 What Is Your Level Of Caffeine Consumption? Occasional Information not available 12/02/2015 How Much Tobacco Do You Chew? None Information not available 12/02/2015 What Type Of Diet Are You Following? REGULAR Information not available 12/02/2015 Which Illicit Or Recreational Drugs Have You Used? None Information not available 12/02/2015 Education 4 Year College Informatio n not available 12/02/2015 Live Alone Or With Others? With Others Information not available 12/02/2015 How Many Children Do You Have? 0 Information not available 12/02/2015 Performs Monthly Self-breast Exam? Yes Information no t available 12/02/2015 Do You Use Protection During Sex? No Information not available 12/02/2015 What Is Your Relationship Status? Single Information not available 12/02/2015 Seat Belts Used Routinely Yes Information not available 12/02/2015 Are You Sexually Active? Yes Information not available 12/02/2015 How Much Tobacco Do You Smoke? No Information not available 12/02/2015 General Stress Level Low Information not available 12/02/2015 Do You Use Sunscreen Routinely? Yes Information not available 12/02/2015 How Many Years Have You Smoked Tobacco? 0 Information not available 12/02/2015 Sex: Unknown Functional Status Question Answer Note LastModified by Organizat ion Details LastModified Time What is your level of alcohol consumption? Occasional Information not available 12/02/2015 Are you currently employed? 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 Occasional Information not available 12/02/2015 Mental Status None recorded. Family History Relationship Description Onset Age of this Age Resolved Age Notes LastModified by Organization Details LastModified Time Mother Malignant tumor of breast [email or web address] Not available 12/01 15:28:12 Mother Depressive disorder [email or web address] Not available 12/01 15:28:12 Father Hypertensive disorder [email or web address] Not available 12/01 15:28:12 Sister Depressive disorder [email or web address] Not available 12/01 15:28:12 Medical History Condition Response Coronary Artery Disease N Blood Diseases N Kidney Cyst N Hyperthyroidism N Blood Transfusion N MRSA N Blood disorders N Emphysema N COPD N Blood Clots N Depression N Pneumonia N Peripheral Arterial Disease N Premature N Edema N TIA N Headaches/Migraines Y Anxiety Disorder N Obesity N Infertility N Polyps N Acid Reflux (GERD) Y Hematuria N Stroke N Neck Injury N Polio N Hospital Admission other than N Neurologic Disorder N Other Sleep Disorders N Rheumatoid Arthritis N Fibromyalgia N Abdominal Aortic Aneurysm Repair N Kidney Disease N Heart Conditions N Heart Disease/Heart Problems N Hospitalizations N Brain Tumors N Acne N Eating Disorder N Skin Problems N Constipation N Meningitis N Tuberculosis N Cerebral Palsy N Myocardial Infarction N Asthma N Substance Abuse N Peripheral Vascular Disease N Vertigo N Sleep Disorder N Cirrhosis N Pulmonary Embolism N Chicken Pox N Flomax Use Past or Present N Hematologic Disease N Anxiety/Depression Y Thyroid Disease N Colon Cancer N Glaucoma N Lung Disease N Developmental or Behavioral Disorders N Bipolar N Pacemaker N Diverticulitis/Diverticulosis N Anesthesia Complications N Orthopedic Problems N Orthotics N Head Injury/Concussion N Congenital Anomalies N Bañuelos Bite N Chronic Kidney Disease N Endometriosis N Liver Disease N Dialysis N Schizophrenia N Speech Delay N Chronic Obstructive Pulmonary Disease N Parkinson's Disease N Thyroid Problems N GI Problems N Developmental Delay N Anemia N Immune System Disorder N Multiple Sclerosis N Colon Polyps N Heart Attack (AK) N Diabetes N Cardiomyopathy N Blood Transfusions N Heart Problems/Murmur N Eye Trauma N Congestive Heart Failure (CHF) N Valvular Heart Disease N Hyperlipidemia N Double Vision N Abuse/Domestic Violence N Hepatitis B N Lupus N Epilepsy/Seizures N Reflux/GERD N Aneurysm N Bronchitis N Heart Disease N Hypertension N Pre-Eclampsia N Heart Failure N Other N Gout N High Blood Pressure N Atrial Fibrillation N Kidney Stones N Head Trauma/Injury N Congenital Heart Disease N Spine Problems N Gastrointestinal Disease N Lung Mass N Sinusitis N Obstructive Sleep Apnea N Muscle, Joint, or Bone Problems N Autoimmune disease N Vision or Eye Problems N Arthritis N Blood Clot N Cancer N Seasonal allergies N Leg or Foot Ulcers N Raynaud's Disease N Aortic Aneurysm N Arrhythmia N Headaches N Heart Problems N Ambloypia N Ear or Hearing Problems N Hyperparathyroidism N Migraines N Artificial Joints N Kidney or Bladder Problems N NSAID Use N Encephalitis N PTSD N Ulcers N Prostate Hypertrophy N Bleeding Disorder N AIDS/HIV N Urinary Tract Infection N Back Problems N Allergies N Atrial Flutter N GERD/Reflux N Hepatitis N Autism Spectrum Disorder (ASD) N Breast Cancer N Hernia N Hypothyroidism N Breast Problem N Genitourinary Disease N Deep Vein Thrombosis N Varicose Veins N Cystic Fibrosis N Hearing Loss N Developmental Problems N Carotid Disease N Vitamin D Deficiency N ADHD N Bladder or Kidney Problems N High Cholesterol N [place] N Valvular Abnormalities N Psychiatric/Mental Health Condition N Organ Transplant N Foot Deformity N Allergies/Hayfever N Dyslipidemia N Hyponatremia N Diabetic Eye Disease N Osteoporosis/Osteopenia N Back Pain N Proteinuria N Mental Illness N Neurological Problems N Ovarian Cancer N Bedwetting N Seizures/Epilepsy N Kidney Failure N Ocular trauma N Dementia N Diverticulitis N Sleep Apnea N Mental Problems N Warfarin Management N Osteoporosis N Gynecological History Statement/Question Response Abnormal Pap Y Flow Light Date of LMP 11/26/2015 STIs/STDs Y HPV Vaccine N Duration of Flow (days) 4 Most Recent Mammogram Age at Menarche 18 Current Control Method Other Frequency of Cycle (Q days) 30 Sexually Active? Y Menses Monthly Y Date of Last Pap Smear 07/23/2015 Sexual Problems? N LMP Definite Desired Control Method Obstetrics History GPAL:G 0 P 0 0 0 0 Type Value Multiple Births 0 Full Term 0 Induced 0 Spontaneous 0 Premature 0 Living 0 Ectopics 0 Total 0 Past Encounters Encounter ID Performer Location Encounter Start Date Encounter Closed Date Diagnosis/Indication Diagnosis SNOMED-CT Code Diagnosis ICD10 Code Diagnosis Note [id number] MD Lory Galindo ([facility]) [address] [place] [address] 12/02/2015 14:16:33 12/02/2015 18:46:08 Gynecologic examination 20857566 Z01.419 Screening mammography 24 128478 Z12.31 Venereal d isease screening 627360273 Z11.3 Health Concerns Section Related Observation LastModified by Organization Detai ls LastModified Time None Recorded Concern Status LastModified by Organization Details LastModified Time None Recorded Advance Directives Directive N: Payers Insurance Date Sequence Insurance Name Policy Number Policy Yang Covered Member ID Yang Member ID Guarantor Name 12/02/2015 1 *SELF PAY* calvin Watts 12/02/2015 SLIDING FEE SCHEDULE - DISCOUNT Yasmeen Watts Notes Date Note Type Note Provider Name and Address Organization Details Recorded Time 12/02/2015 text/html Abnormal Pap SmearReported bypatient.Associated Symptoms:no vaginal/vulvar pain; no vulvar lesions/growths; no vaginal discharge; no postcoital bleeding; no dyspareuniaAnnual GYNReported bypatient.History:no gynecologic complaints Menstrual cycle:Normal menses Urinary symptoms:No hematuria; No incontinence Vulva:No genital lesion Vagina:Normal vaginal discharge Breast:No breast pain; No breast lump; No nipple discharge Current Contraception:Satisfie d with current contraception Sexual complaints:No sexual complaints; No pain during intercourse; Normal libido Menopausal Symptoms:No menopausal symptoms; Normal vaginal lubrication Psychological symptoms:No depression; No anxiety; No PMDD Preventive measures:Encourage self breast examination; Encourage regular exercise; Encourage no tobacco use; Encourage regular mammograms starting age 40; Followed with yearly pap smears; Needs to schedule mammogram MIGUEL Pollock SIMANAN 12/02/2015 18:45:12 OBGyn Episode No OBEpisode recorded.
[2024-09-08 05:53] VITALS: BP 138/86; PULSE 77; RESP 20; TEMP 36.7; O2SAT 97
--- NOTE | 2024-09-08 06:06 | ECG_ITS ---
Test Date: 2024-09-08 06:25:12 Measurements Intervals [place] Rate: 77 P: -7 [place]: 168 QRS: 22 QRSD: 90 T: 14 QT: 377 QTc: 427 Interpretive Statements SINUS RHYTHM NORMAL ELECTROCARDIOGRAM No previous ECG available for comparison Electronically Signed On 09-08-2024 08:56:16 CDT by Sean Win M.D.
[2024-09-08 06:29] LABS: Hematocrit 37.2 % (37.0-47.0); Hemoglobin 12.3 g/dL (12.0-15.0); Immature Granulocyte Percent A 0.1 % (0-0.5); Lymphocytes Absolute Auto 2.89 K/mm3 (0.9-3.2); Mean Corpuscular HGB Conc 33.1 g/dl (32-36); Mean Corpuscular Hemoglobin 29.4 pg (26-34); Mean Corpuscular Volume 88.8 fl (80-100); Nucleated Red Blood Cells Absolute Auto 0.000 K/mm3 (0.0-0.012); Nucleated Red Blood Cells Perc 0.0 % (0.0-0.2); Platelet Count Result 258 k/mm3 (150-375); Red Blood Count 4.19 M/mm3 (4.2-5.4); White Blood Count 8.7 K/mm3 (4.5-10.0)
[2024-09-08 06:39] LABS: INR 0.9; Prothrombin Time 12.7 Seconds (11.1-14.7)
[2024-09-08 06:40] LABS: Partial Thromboplastin Time 27.3 Seconds (22.3-36.8)
[2024-09-08 06:41] LABS: Potassium 3.7 mmol/L (3.4-5.0)
[2024-09-08 06:42] LABS: Alanine Aminotransferase 21 U/L (6-35); Albumin Level 3.7 g/dL (3.5-5.1); Alkaline Phosphatase 60 U/L (38-126); Anion Gap 7 mmol/L (4-12); Aspartate Amino Transferase 29 U/L (14-36); Bilirubin,Total 0.4 mg/dL (0.2-1.3); Blood Urea Nitrogen 13 mg/dL (7-17); Calcium 8.3 mg/dL (8.4-10.2); Carbon Dioxide 24 mmol/L (22-30); Chloride 108 mmol/L (98-107); Estimated Glomerular Filt Rate > 60; Glucose 144 mg/dL (65-110); Lipase 85 U/L (23-300); Sodium 139 mmol/L (137-145); Total Protein 6.7 g/dL (6.3-8.2)
[2024-09-08 06:52] LABS: Troponin I < 0.012 ng/mL (0.000-0.034)
[2024-09-08] MEDS: ACETAMINOPHEN 500 MG TABLET 1000 MG PO (07:15)
[2024-09-08 07:27] VITALS: PULSE 62
[2024-09-08 07:31] VITALS: BP 146/67; PULSE 73; RESP 13; TEMP 36.7; O2SAT 99
[2024-09-08] MEDS: diazePAM INJ (*CRX) 10 MG/2 ML SYRINGE 5 MG IV PUSH (07:35)
--- NOTE | 2024-09-08 07:43 | ED_ITS ---
HPI - General Adult General Chief complaint: Unspecified Stated complaint: feeling chest flutter, headache, dizziness Time Seen by Provider: 09/08/24 06:56 History of Present Illness HPI narrative: This is a pleasant 53 year female with history of anxiety and panic attacks presenting with palpitations. Over the last 2 nights the patient says that she has been having fluttering in the left side of her chest. She feels like her blood pressure is getting high feel her pulse in her left arm. Symptoms resolved on their own. Patient says that she had a very stressful night at work last night there were 3 columns. Patient says when she has attack she frequently has feelings in her chest. She denies fevers chills shortness of breath abdominal pain nausea vomiting diarrhea. Denies use drugs or alcohol. she is worried she is having heart attack. Related Data Allergies Allergy/AdvReac Type Severity Reaction Status Date / Time No Known Allergies Allergy Unverified 12/19/14 06:18 Exam 2 Narrative: APPEARANCE: Anxious appearing Head: atraumatic. EYES: EOMI, NOSE: Atraumatic NECK: Trachea midline RESPIRATORY: No increased rate of breathing clear to auscultation CARDIOVASCULAR: RRR, no peripheral edema ABDOMINAL: Non-distended soft nontender MUSCULOSKELETAl: No obvious deformities NEURO: Alert. Moving 4/4 extremities SKIN:: Warm, dry. Normal color PSYCHIATRIC: Normal affect Course Vital Signs Vital signs: Vital Signs Temperature 98.1 F 09/08/24 05:53 Pulse Rate 77 09/08/24 05:53 Respiratory Rate 20 09/08/24 05:53 Blood Pressure 138/86 09/08/24 05:53 Pulse Oximetry 97 09/08/24 05:53 Temperature 98.0 F 09/08/24 07:31 Pulse Rate 77 09/08/24 09:17 Respiratory Rate 18 09/08/24 09:17 Blood Pressure 114/81 09/08/24 09:17 Pulse Oximetry 99 09/08/24 09:17 Oxygen Delivery Room Air 09/08/24 07:31 Medical Decision Making [facility] Narrative Medical decision making narrative: -Course: 53-year-old female presenting with fluttering in her chest, headache, and feeling her pulse in her left arm. Patient appears very anxious and was given Valium. Rest her physical exam is unremarkable she has stable vital signs. Patient is most concerned a heart attack. EKG, troponin x2 and chest x- ray were unremarkable. She was monitored on ekg monitor during her stay with no dysrhythmias.. Laboratory studies within normal limits. Viral swabs were clear. On re-evaluation patient is resting comfortably in bed. She states she feels much better and is asymptomatic. Patient be discharged to follow-up with her primary care physician. -DDX includes but is not limited to: Anxiety, panic attack, cardiac dysrhythmia, ACS, pneumonia, pneumothorax -Co-morbidities complicating care: Anxiety Independent EKG interpretation: Rhythm [sinus], Rate [77], [place] -[normal], DC -[normal], QRS [narrow], QTC [normal], T waves -[negative for concerning inversions], ST Segments - [Negative for concerning elevations] Final interpretations: [Normal Sinus Rhythm] Vital Signs Vital Signs: Vital Signs Temperature 98.1 F 09/08/24 05:53 Pulse Rate 77 09/08/24 05:53 Respiratory Rate 20 09/08/24 05:53 Blood Pressure 138/86 09/08/24 05:53 Pulse Oximetry 97 09/08/24 05:53 Temperature 98.0 F 09/08/24 07:31 Pulse Rate 77 09/08/24 09:17 Respiratory Rate 18 09/08/24 09:17 Blood Pressure 114/81 09/08/24 09:17 Pulse Oximetry 99 09/08/24 09:17 Oxygen Delivery Room Air 09/08/24 07:31 Lab Data 09/08/24 06:21 09/08/24 06:21 Labs: Lab Results 09/08/24 09/08/24 09/08/24 Range/Units 06:21 07:27 09:36 WBC 8.7 (4.5-10.0) K/mm3 RBC 4.19 L (4.2-5.4) M/mm3 Hgb 12.3 (12.0-15.0) g/dL Hct 37.2 (37.0-47.0) % MCV 88.8 (80-100) fl MCH 29.4 (26-34) pg MCHC 33.1 (32-36) g/dl RDW 12.8 (11.5-14.5) % Plt Count 258 (150-375) k/mm3 MPV 8.7 (7.4-10.4) fl Immature Gran % (Auto) 0.1 (0-0.5) % Neut % (Auto) 58.2 (45.5-73.1) % Lymph % (Auto) 33.1 (18.3-44.2) % [place] % (Auto) 6.3 (2.6-8.5) % Eos % (Auto) 1.8 (0-4.4) % Baso % (Auto) 0.5 (0.2-1.2) % Lymph # (Auto) 2.89 (0.9-3.2) K/mm3 [place] # (Auto) 0.6 (0.1-0.6) K/mm3 Eos # (Auto) 0.2 (0-0.3) K/mm3 Baso # (Auto) 0.0 (0.0-0.1) K/mm3 Abs Immat Gran (auto) 0.01 (0.00-0.031) K/mm3 Absolute Neuts (auto) 5.1 (1.3-6.7) K/mm3 Absolute Nucleated RBC 0.000 (0.0-0.012) K/mm3 Nucleated RBC % 0.0 (0.0-0.2) % PT 12.7 (11.1-14.7) Seconds INR 0.9 APTT 27.3 (22.3-36.8) Seconds Sodium 139 (137-145) mmol/L Potassium 3.7 (3.4-5.0) mmol/L Chloride 108 H (98-107) mmol/L Carbon Dioxide 24 (22-30) mmol/L Anion Gap 7 (4-12) mmol/L BUN 13 (7-17) mg/dL Creatinine 0.61 L (0.7-1.0) mg/dL Estim Creat Clear Calc Not Reportable Estimated GFR > 60 (59 - ) Glucose 144 H (65-110) mg/dL Calcium 8.3 L (8.4-10.2) mg/dL Total Bilirubin 0.4 (0.2-1.3) mg/dL AST 29 (14-36) U/L ALT 21 (6-35) U/L Alkaline Phosphatase 60 (38-126) U/L Troponin I < 0.012 < 0.012 (0.000-0.034) ng/mL Total Protein 6.7 (6.3-8.2) g/dL Albumin 3.7 (3.5-5.1) g/dL Lipase 85 (23-300) U/L Influenza A (RT-PCR) Negative (Negative) Influenza B (RT-PCR) Negative (Negative) RSV (RT-PCR) Negative (Negative) SARS-CoV-2 RNA (RT-PCR) Negative (Negative) Discharge Plan Discharge Clinical Impression: Heart palpitations Patient Disposition: Home Condition: Stable Instructions: Antibiotic Form, Heart Palpitations (DC), Stress (ED) Additional Instructions: You were seen in the emergency department for fluttering in your chest. Your workup here was very reassuring. Please follow-up your primary care physician for further management return if develop any new or worsening symptoms. Patient Language: Nepali Follow-up/Referrals: Stephen,MD Hoang [Non-Staff] -
--- OUTSIDE RECORDS SUMMARY | 2024-09-08 07:55 | XMS_ITS | Encounter Summary ---
Author Organization [facility] Address [address] [place] [address] Phone Care Team Providers Care Pastoral Worker Name Role Phone Marcela Mitchell MD Primary Care Provider [phone] Blake Browning MD Unavailable [phone] Burt Botello MD Unavailable [phone] Reason for Visit * Reason Comments Medication Refill Encounter Details Date Type Department Care Team (Late st Contact Info) Description 02/03/2021 Refill [facility] [address] [address] Burt Botello MD [address] [place] [address] Medication Refill Social History Tobacco Use Types Packs/Day Years Used Date Smoking Tobacco: Never Smokeless Tobacco: Never PHQ-2 Answer Date Recorded Total Score - Questions 1-9 1 04/21 Comments No Sex and Gender Information Value Date Recorded Sex Assigned at Not on file Legal Sex Female 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 Gender Identity Not on file Sexual Orientation Not on file documented as of this encounter Plan of Treatment Not on file documented as of this encounter Visit Diagnoses Not on filedocumented in this encounter Additional Health Concerns Assessment Noted Time PHQ-9 Depression Total Score: 1 05/09/19 21 12:00 PM CDT documented as of this encounter Care Teams Pastoral Worker Relationship Specialty [place] [address] [place] [address] PCP - General Internal Medicine 03/08/19 [place] [address] [place] [address] Colon & Rectal Surgery 03/08/19 Burt Botello MD [address] [place] [phone] Consulting Physician Oncology 04/21/20 documented as of this encounter
--- OUTSIDE RECORDS SUMMARY | 2024-09-08 07:55 | XMS_ITS | Encounter Summary ---
Author Organization [facility] Address [address] [place] [address] Care Team Providers Care Mold Maintenance Technician Name Role Phone Marcela Mitchell MD Primary Care Provider + [phone] None, Provider Primary Care Provider Karyna Isabel NP Primary Care Provider + [phone] Encounter Details Date Type Department Care Team (Late st Contact Info) Description 05/21/2019 [employer] [facility] Patient Accounts [address] [place] [address] [facility] balance Social History Tobacco Use [...] Rule Out 12/31/2020 12/31/2020 12/31/2020 3:08 PM ASBESTOS HANDLER COVID-19 Rule Out 01/07/2021 01/07/2021 01/07/2021 2:17 PM ASBESTOS HANDLER COVID-19 Rule Out 01/14/2021 01/14/2021 01/14/2021 3:00 PM ASBESTOS HANDLER COVID-19 Rule Out 01/21/2021 01/21/2021 01/21/2021 2:56 PM ASBESTOS HANDLER COVID-19 Rule Out 01/28/2021 01/28/2021 01/28/2021 2:51 PM ASBESTOS HANDLER COVID-19 Rule Out 02/04/2021 02/04/2021 02/04/2021 2:51 PM ASBESTOS HANDLER COVID-19 Rule Out 02/10/2021 02/10/2021 02/10/2021 3:04 PM ASBESTOS HANDLER COVID-19 Rule Out 02/18/2021 02/18/2021 02/18/2021 2:53 PM ASBESTOS HANDLER COVID-19 Rule Out 02/25/2021 02/25/2021 02/25/2021 5:03 PM ASBESTOS HANDLER COVID-19 Rule Out 03/04/2021 03/04/2021 03/04/2021 3:03 PM ASBESTOS HANDLER Assessment Noted Time PHQ-9 Depression Total Score: 15 019 11:32 AM CDT documented as of this encounter Care Teams Mold Maintenance Technician Relationship Specialty Start Date End Date Marcela Mitchell MD PCP - General INTERNAL MEDICINE 07/20/18 01/17/23 None, Provider, PCP - General UNKNOWN PHYSICIAN SPECIALTY 01/18/23 [place] [address] [address] PCP - General Nurse Practitioner Family 05/16/23 documented as of this encounter
--- OUTSIDE RECORDS SUMMARY | 2024-09-08 07:55 | XMS_ITS | Encounter Summary ---
Author Organization [facility] Address [address] [place] [address] Phone Care Team Providers Care Paper Bags Sewing Machine Operator Name Role Phone Marcela Mitchell MD Primary Care Provider [phone] Blake Browning MD Unavailable [phone] Burt Botello MD Unavailable [phone] Reason for Visit * Reason Comments Medication Refill Encounter Details Date Type Department Care Team (Late st Contact Info) Description 05/05/2020 Refill [facility] [address] [place] [address] Burt Botello MD [address] [place] [address] Medication Refill Social History Tobacco Use Types Packs/Day Years Used Date Smoking Tobacco: Never Smokeless Tobacco: Never PHQ-2 Answer Date Recorded Total Score - Questions 1-9 1 04/21 Comments Unknown Sex and Gender Information Value Date Recorded Sex Assigned at Not on file Legal Sex Female 8:45 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
--- OUTSIDE RECORDS SUMMARY | 2024-09-08 07:55 | XMS_ITS | Encounter Summary ---
Author Organization [facility] Address [address] [place] [address] Care Team Providers Care Pony Worker Name Role Phone Karyna Gallardo NP Primary Care Provider [phone] Encounter Details Date Type Department Care Team (Late st Contact Info) Description 05/16/2023 [employer] Message Enc [facility] Medical Group Family & Internal Medicine [address] [address] [employer], [facility] Provider reset appt Social History Tobacco Use [...] documented as of this encounter Care Teams Pony Worker Relationship Specialty [place] [address] [facility] [address] [facility] [place] [address] PCP - General Nurse Practitioner Family 05/16/23 documented as of this encounter
--- OUTSIDE RECORDS SUMMARY | 2024-09-08 07:55 | XMS_ITS | Clinical Summary ---
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 Gender Identity Not on file Sexual Orientation Not on file Last Filed Vital Signs Vital Sign Reading Time Taken Comments Blood Pressure 110/68 02/04/2022 1:40 PM LATEX RIBBON MACHINE OPERATOR Pulse 98 02/04/2022 1:40 PM LATEX RIBBON MACHINE OPERATOR Temperature 36.6 C (97.8 F) 02/04/2022 1:40 PM LATEX RIBBON MACHINE OPERATOR Respiratory Rate 18 07/23/2021 1:00 PM CDT Oxygen Saturation 98% 02/04/2022 1:40 PM LATEX RIBBON MACHINE OPERATOR Inhaled Oxygen Concentration - - Weight 68.9 kg (152 lb) 02/04/2022 1:40 PM LATEX RIBBON MACHINE OPERATOR Height 167.6 cm (5' 6) 02/04/2022 1:40 PM LATEX RIBBON MACHINE OPERATOR Body Mass Index 24.53 02/04/2022 1:40 PM LATEX RIBBON MACHINE OPERATOR Plan of Treatment Health Maintenance Due Date [...] Priority Date/Time Associated Diagnosis Comments PATHOLOGY CYTOLOGY PSYCHIATRIC THERAPIST Routine 06/26/2021 from Last 3 Months or Most Recently Relevant to Health Maintenance Results * PATHOLOGY CYTOLOGY PSYCHIATRIC THERAPIST (06/26/2021) Other us Not On File Provider PATHOLOGY/CYTOLOGY ORDERABL ES Final Result from Last 3 Months or Most Recently Relevant to Health Maintenance Insurance [facility] Care Teams Supervisor Delivery Department Relationship Specialty [place] [address] [place] [address] PCP - General Internal Medicine 03/08/19 [place] [address] [place] [address] Colon & Rectal Surgery 03/08/19 Burt Botello MD [address] [place] [address] Consulting Physician Oncology 04/21/20
--- OUTSIDE RECORDS SUMMARY | 2024-09-08 07:55 | XMS_ITS | Clinical Summary ---
Author Organization [facility] Address [address] [place] [address] Care Team Providers Care Pile Driving Superintendent Name Role Phone Karyna Gallardo NP Primary [...] - 06/28/2024 11:59 PM CDT Hospital Encounter [facility] Mammography [address] [place] [address] Reid Molina, PROCESSING SPECIALIST Discharge Disposition: Home or Self Care (Routine [...] Cancer Screening with HPV 08/21/2026 PHQ-2 (Physician Independence) Completed 05/22/2024 Meningococcal B Vaccine Aged Out [...] 4:59 PM Narrative 06/28/2024 5:03 PM CDT [facility] [address] [place] [address] EXAMINATION: Digital bilateral screening mammogram with 3-D [...] breast to suggest malignancy. us Reid Molina PROCESSING SPECIALIST MAMMO Final Result * HPV MRNA E6/E7 (08/21/2021 2:55 PM CDT) HPV MRNA E6/E7 Not Detected NOT DETECTED 08/27/2021 6:16 AM CDT [employer] FLOR JUAREZ Comment: Methodology: Chief Librarian Extension Department Mediated Amplification This assay detects E6/E7 viral messenger RNA (mRNA) from 14 high-risk HPV types (16,18,31,33,35,39,45,51, 52,56,58,59,66,68). For additional information please refer to: http://education.[employer]/faq/IYL091y0 (This link is being provided for informational/ educational purposes only.) The analytical performance characteristics of this assay have been determined by [facility] [place], [place]. The modifications have not been cleared or approved by the FDA. This assay has been validated pursuant to the CLIA regulations and is used for clinical purposes. Test Performed by [facility], [facility], [address] [place], [place] Foreign Aj M.D., Ph.D., Director of Laboratories , CLIA [id number] 08/21/2021 2:55 PM CDT Reid Molina NP PATHOLOGY/CYTOLOGY ORDERABLES Final Result [facility] [address] [place] [address], * Cytopath Cerv/Vag Thin Layer (08/21/2021 12:00 AM CDT) COPATH REPORT [place] [address] [phone] Department of Pathology Pathology Report Gynecological Cytology Report Patient Name: YASMEEN ANDREW : 1970 (Age: 50) Location: [facility] Gender: F Collected Date: 08/21/2021 [facility] Rec #: [id number] Date Received: 08/24/2021 Date Reported: 08/27/2021 Provider: REID MALAGON Other Case Numbers [id number] Final Cytologic Diagnosis Satisfactory for evaluation. Endocervical component present. Negative for Intraepithelial Lesion or Malignancy. Cellular changes associated with Malia. High-risk HPV mRNA E6/E7 by [employer]ptima assay (performed at [facility]) is reported as NOT DETECTED (see separate report for details). Electronically Signed Out By Van Jj Source of Specimen(s) Cervical/Endocervi francois - Thin Prep Clinical History Screening, last Pap 05/19/18 wnl. Z12.4 Date of Last Menstrual Period: 06/18/21 Billing Fee Code(s): A: [address]74 [facility] (B) [facility] 08/21/2021 08/24/2021 11: 16 AM CDT Comment:Cervical/Endocervica l - Thin Prep Reid Molina NP PATHOLOGY/CYTOLOGY ORDERABLES Final Result [facility] [address] [place] [address], from Last 3 Months or Most Recently Relevant to Health Maintenance Insurance [facility] Care Teams Pile Driving Superintendent Relationship Specialty [place] [address] [place] [address] PCP - General Nurse Practitioner Family 05/16/23
--- OUTSIDE RECORDS SUMMARY | 2024-09-08 07:55 | XMS_ITS | Encounter Summary ---
Author Organization [facility] Address [address] [place] [address] Care Team Providers Care Travel Writer Name Role Phone Marcela Mitchell MD Primary Care Provider + [phone] None, Provider Primary Care Provider Karyna Isabel NP Primary Care Provider + [phone] Encounter Details Date Type Department Care Team (Late st Contact Info) Description 12/07/2019 [employer] Message Enc [facility] Medical Group Family & Internal Medicine [address] [address] [facility] Results Social History Tobacco [...] Rule Out 12/31/2020 12/31/2020 12/31/2020 3:08 PM SWIM COACH COVID-19 Rule Out 01/07/2021 01/07/2021 01/07/2021 2:17 PM SWIM COACH COVID-19 Rule Out 01/14/2021 01/14/2021 01/14/2021 3:00 PM SWIM COACH COVID-19 Rule Out 01/21/2021 01/21/2021 01/21/2021 2:56 PM SWIM COACH COVID-19 Rule Out 01/28/2021 01/28/2021 01/28/2021 2:51 PM SWIM COACH COVID-19 Rule Out 02/04/2021 02/04/2021 02/04/2021 2:51 PM SWIM COACH COVID-19 Rule Out 02/10/2021 02/10/2021 02/10/2021 3:04 PM SWIM COACH COVID-19 Rule Out 02/18/2021 02/18/2021 02/18/2021 2:53 PM SWIM COACH COVID-19 Rule Out 02/25/2021 02/25/2021 02/25/2021 5:03 PM SWIM COACH COVID-19 Rule Out 03/04/2021 03/04/2021 03/04/2021 3:03 PM SWIM COACH Assessment Noted Time PHQ-9 Depression Total Score: 15 019 11:32 AM CDT documented as of this encounter Care Teams Travel Writer Relationship Specialty Start Date End Date Marcela Mitchell MD PCP - General INTERNAL MEDICINE 07/20/18 01/17/23 None, Provider, PCP - General UNKNOWN PHYSICIAN SPECIALTY 01/18/23 [place] [address] [place] [address] PCP - General Nurse Practitioner Family 05/16/23 documented as of this encounter
--- OUTSIDE RECORDS SUMMARY | 2024-09-08 07:55 | XMS_ITS | Encounter Summary ---
Author Organization [facility] Address [address] [place] [address] Phone Care Team Providers Care Bundle Person Name Role Phone Marcela Mitchell MD Primary Care Provider Blake Browning MD Unavailable [phone] Burt Botello MD Unavailable [phone] Reason for Visit * Reason Comments Medication Refill Encounter Details Date Type Department Care Team (Late st Contact Info) Description 01/18/2021 Refill [facility] [address] [place] [address] Burt Botello MD [address] [place] [address] Medication Refill Social History Tobacco Use Types Packs/Day Years Used Date Smoking Tobacco: Never Smokeless Tobacco: Never PHQ-2 Answer Date Recorded Total Score - Questions 1-9 1 04/21 Comments No Sex and Gender Information Value Date Recorded Sex Assigned at Not on file Legal Sex Female 8:45 AM SIDE LASTER TACK Gender Identity Not on file Sexual Orientation Not on file documented as of this encounter Miscellaneous Notes * Telephone Encounter - Burt Botello MD - 01/19/2021 2:24 PM SIDE LASTER TACK Needs appt LASTER TACK * Telephone Encounter - Marialuisa Jeff RMA - 01/19/2021 9:21 AM CST Pharmacy requested refill. Please refill if appropriate. Thanks! LASTER TACK documented in this encounter Plan of Treatment Not on file documented as of this encounter Visit Diagnoses Not on filedocumented in this encounter Additional Health Concerns Assessment Noted Time PHQ-9 Depression Total Score: 1 05/09/19 21 12:00 PM CDT documented as of this encounter Care Teams Bundle Person Relationship Specialty Start [place] [address] [place], [place] [id number] PCP - General Internal Medicine 03/08/19 [place] [address] [place] [address] Colon & Rectal Surgery 03/08/19 Burt Botello MD [address] [place] [address] Consulting Physician Oncology 04/21/20 documented as of this encounter
[2024-09-08 08:08] LABS: Influenza A QL RT-PCR Negative (Negative); Influenza B QL RT-PCR Negative (Negative); RSV RNA, RT-PCR Negative (Negative); SARS-CoV-2 RNA PCR Negative (Negative)
[2024-09-08 09:17] VITALS: BP 114/81; PULSE 77; RESP 18; O2SAT 99
[2024-09-08 10:25] LABS: Troponin I < 0.012 ng/mL (0.000-0.034)
[2024-09-08 10:42] VITALS: BP 119/72; PULSE 68; RESP 18; O2SAT 98
== END 2024-09-08 10:44 | disposition home or self-care (01) ==
PROVIDERS: Student in an Organized Health Care Education/Training Program; Emergency Provider Emergency Medicine
DX: R00.2 Palpitations (principal); Z20.822 Contact with and (suspected) exposure to COVID-19; F41.9 Anxiety disorder, unspecified
CPT/HCPCS: 36415; 71046; 80053; 83690; 84484; 85025; 85610; 85730; 87637; 93005; 96374; 99284; A9270; J3360